=== PATIENT | male | born 1990 | race Caucasian/White ===

== ENCOUNTER 2021-06-18 06:39 | Emergency (ER) | payer OTHER ==
[~2021-06-18] VITALS: Ht 188 cm; Wt 122.7 kg
[2021-06-18 07:01] VITALS: BP 168/85
[2021-06-18] MEDS ORDERED: KETOROLAC 15 MG/ML VIAL. IM ONE (07:15)
[2021-06-18] MEDS ORDERED: CEPH500T PO (07:25)
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
== END 2021-06-18 08:00 | disposition home or self-care (01) ==
LOC: ER 06:39
DX: L03.011 Cellulitis of right finger (principal)
CPT/HCPCS: 73130; 96372; 99283; J1885